=== PATIENT | male | born 1990 | race Caucasian/White ===

== ENCOUNTER 2018-07-14 17:12 | Inpatient (IN) | payer BC ==
--- NOTE | 2018-07-14 18:22 | EDM.PDOC ---
ED HPI GENERAL MEDICAL PROBLEM - General Chief Complaint: Cardiovascular Problem Stated Complaint: FROM CLINIC Time Seen by Provider: 07/14/18 18:18 Source of Information: Reports: Patient History Limitations: Reports: No Limitations - History of Present Illness INITIAL COMMENTS - FREE TEXT/NARRATIVE: his patient comes emergency department today from the clinic with concerns of weakness nausea and vomiting. The patient initially was to be a direct admit but the hospitalist would like the patient screen in the emergency department as there was some concerns for hypotension with his rather comorbid patient. The patient he does have a significant history of cardiomyopathy with a reduced ejection fraction. He has been recently placed on blood pressure medication as well as diureticte aggressively. Over the past couple of days he really has no energy and he feels very fatigued and wiped out.He has no shortness of breath difficulty breathing or chest pain. No cough or congestion. He is currently on Xarelto. He has no abdominal pain. But he has quite a bit of nausea and retching. No diarrhea. He does have a wound VAC to his groin from previous surgery from a strangulated hernia.e has been taking his medications as prescribed Generalized Pain Score (Numeric/FACES): 7 - Related Data Allergies Allergy/AdvReac Type Severity Reaction Status Date / Time topiramate [From Topamax] Allergy Unknown INTOLERANCE Verified 07/14/18 19:57 heparin Allergy Cannot Verified 07/14/18 19:57 Remember Home Meds: Home Meds Venlafaxine HCl [Venlafaxine ER] 150 mg PO DAILY 04/17/18 [History] Albuterol Sulfate 2.5 mg IH Q4H PRN 04/19/18 [History] Albuterol [Ventolin HFA] 2 puff INH Q4H PRN 04/19/18 [History] Fluticasone/Salmeterol [Advair 100-50] 1 inhalation INH BID 06/05/18 [History] LORazepam [Ativan] 1 mg PO Q8HR PRN 06/05/18 [History] busPIRone HCl [Buspirone HCl] 10 mg PO BID 06/05/18 [History] Amoxicillin/Potassium Clav [Augmentin 875-125 Tablet] 1 tab PO TID 07/14/18 [ History] Bumetanide [Bumex] 3 mg PO BID 07/14/18 [History] Carvedilol [Coreg] 3.125 mg PO BID 07/14/18 [History] Lisinopril [Zestril] 5 mg PO DAILY 07/14/18 [History] Magnesium Oxide 400 mg PO DAILY 07/14/18 [History] Oxybutynin Chloride 5 mg PO TID 07/14/18 [History] Potassium Chloride 40 meq PO QID 07/14/18 [History] Rivaroxaban [Xarelto] 15 mg PO BID 07/14/18 [History] Spironolactone [Aldactone] 50 mg PO BID 07/14/18 [History] metFORMIN [Glucophage XR] 1,000 mg PO BIDMEALS 07/14/18 [History] Past Medical History HEENT History: Reports: Allergic Rhinitis, Impaired Vision Cardiovascular History: Reports: High Cholesterol Respiratory History: Reports: Asthma, PE Other Respiratory History: hx of status asthmaticus Genitourinary History: Reports: None Musculoskeletal History: Reports: None Neurological History: Reports: Neuropathy, Diabetic Psychiatric History: Reports: Anxiety Endocrine/Metabolic History: Reports: Diabetes, Type II, Obesity/BMI 30+ 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 Immunologic History: Reports: None Oncologic (Cancer) History: Reports: None Dermatologic History: Reports: None - Infectious Disease History Infectious Disease History: Reports: None - Past Surgical History Head Surgeries/Procedures: Reports: None GI Surgical History: Reports: Bariatric Procedure, Hernia, Abdominal, Other ( See Below) Other GI Surgeries/Procedures: lap band Social & Family History - Family History Family Medical History: Noncontributory - Tobacco Use Smoking Status *Q: Never Smoker - Caffeine Use Caffeine Use: Reports: None - Recreational Drug Use Recreational Drug Use: No - Living Situation & Occupation Living situation: Reports: with Family Occupation: Employed ED ROS GENERAL - Review of Systems Review Of Systems: ROS reveals no pertinent complaints other than HPI. ED EXAM, GENERAL - Physical Exam Exam: See Below Free Text/Narrative:: his is a very morbid obese patient who appears in no acute distress.He is retching when I enter the room. Exam Limited By: No Limitations General Appearance: Alert, No Apparent Distress Head: Atraumatic, Normocephalic Neck: Normal Inspection, Supple Respiratory/Chest: No Respiratory Distress, Lungs Clear, Normal Breath Sounds, No Accessory Muscle Use Cardiovascular: Normal Peripheral Pulses, Regular Rate, Rhythm, No Murmur GI/Abdominal: Normal Bowel Sounds, Soft, Non-Tender Back Exam: Normal Inspection, Full Range of Motion Extremities: Normal Inspection, Pedal Edema (2+ pitting edema bilaterally which the patient and his family report as being much improved.) Neurological: Alert, Oriented, Normal Cognition, No Motor/Sensory Deficits Psychiatric: Normal Affect, Normal Mood Skin Exam: Warm, Dry, Intact, Normal Color, No Rash EKG INTERPRETATION EKG Date: 07/14/18 Time: 19:21 Rhythm: NSR Rate (Beats/Min): 102 Nora: Normal P-Wave: Present QRS: Normal ST-T: Normal QT: Normal Comparison: No Change Course - Vital Signs Last Recorded V/S: Last Vital Signs Temp 36.4 C 07/14/18 19:47 Pulse 110 H 07/14/18 19:47 Resp 18 07/14/18 19:47 BP 106/76 07/14/18 19:47 Pulse Ox 100 07/14/18 19:47 - Orders/Labs/Meds Orders: Active Orders 24 hr Category Date Time Status EKG 12 Lead [EKG Documentation Completion] [RC] URGENT Care 07/14/18 18:25 Active Peripheral IV Care [RC] . DIRECTED Care 07/14/18 18:24 Active Sodium Chloride 0.9% [Saline Flush] Med 07/14/18 18:24 Active 10 ml FLUSH ASDIRECTED PRN Peripheral IV Insertion Adult [OM.PC] Stat Oth 07/14/18 18:24 Ordered Medication Orders Sodium Chloride (Saline Flush) 10 ml FLUSH ASDIRECTED PRN PRN Reason: Keep Vein Open Last Admin: 07/14/18 18:47 Dose: 10 ml Labs: Laboratory Tests 07/14/18 Range/Units 18:44 Sodium 126 L (135-145) mmol/L Potassium 5.4 H D (3.6-5.0) mmol/L Chloride 90 L (101-111) mmol/L Carbon Dioxide 23.0 (21.0-31.0) mmol/L Anion Gap 18.4 BUN 17 (7-18) mg/dL Creatinine 0.8 (0.6-1.3) mg/dL Est Cr Clr Drug Dosing 126.27 mL/min Estimated GFR (MDRD) > 60 BUN/Creatinine Ratio 21.25 Glucose 93 (74-105) mg/dL Calcium 9.2 (8.4-10.2) mg/dl Total Bilirubin 1.6 H (0.2-1.0) mg/dL AST 31 (10-42) IU/L ALT 21 (10-60) IU/L Alkaline Phosphatase 63 (42-121) IU/L Troponin I < 0.02 (0.00-0.02) ng/ml Total Protein 6.8 (6.7-8.2) g/dl Albumin 3.8 (3.2-5.5) g/dl Globulin 3.0 Albumin/Globulin Ratio 1.27 Meds: Medications Generic Name Dose Route Start Last Admin Trade Name Freq PRN Reason Stop Dose Admin Sodium Chloride 10 ml 07/14/18 18:24 07/14/18 18:47 Saline Flush FLUSH 10 ml ASDIRECTED PRN Administration Keep Vein Open Discontinued Medications Generic Name Dose Route Start Last Admin Trade Name Freq PRN Reason Stop Dose Admin Piperacillin Sod/Tazobactam 100 mls @ 200 mls/hr 07/14/18 18:29 07/14/18 19: 05 Sod 3.375 gm/ Sodium Chloride IV 07/14/18 18:58 Not Given ONETIME ONE Ondansetron HCl 4 mg 07/14/18 18:31 07/14/18 18:58 Zofran IV 07/14/18 18:32 4 mg ONETIME ONE Administration - Re-Assessments/Exams Free Text/Narrative Re-Assessment/Exam: 07/14/18 20:27 his blood pressure stable in the emergency department.His laboratory evaluation is repeated his troponin is normal. Did review his laboratory evaluation from the clinic that shows hyponatremia as well as hyperkalemia. I spoke with the hospitalist and he feels comfortable with admission. Departure - Departure Time of Disposition: 19:00 Disposition: Admitted As Inpatient 68 Clinical Impression: Weakness, Hyponatremia, Morbid obesity, Hyperkalemia - My Orders Last 24 Hours: My Active Orders 07/14/18 18:24 Peripheral IV Care [RC] . DIRECTED Sodium Chloride 0.9% [Saline Flush] 10 ml FLUSH ASDIRECTED PRN Peripheral IV Insertion Adult [OM.PC] Stat 07/14/18 18:25 EKG 12 Lead [EKG Documentation Completion] [RC] URGENT - Assessment/Plan Last 24 Hours: My Active Orders 07/14/18 18:24 Peripheral IV Care [RC] . DIRECTED Sodium Chloride 0.9% [Saline Flush] 10 ml FLUSH ASDIRECTED PRN Peripheral IV Insertion Adult [OM.PC] Stat 07/14/18 18:25 EKG 12 Lead [EKG Documentation Completion] [RC] URGENT Assessment:: Weakness hyponatremia hyperkalemia nausea vomiting morbid obesity.
[2018-07-14] MEDS ORDERED: Sodium Chloride 0.9% 10 ML Syringe FLUSH PRN (18:24)
[2018-07-14] MEDS ORDERED: Piperacillin/Tazobactam 3.375 GM in Sodium Chloride 0.9% 100 ML IV ONE (18:29)
[2018-07-14] MEDS ORDERED: Ondansetron 4 MG/2 ML SDV IV ONE (18:31)
[2018-07-14 19:14] LABS: ANION GAP 18.4; CHLORIDE,CL 90 mmol/L (101-111); SODIUM,NA 126 mmol/L (135-145)
--- NOTE | 2018-07-14 20:09 | PCM.HP ---
H&P History of Present Illness - General Date of Service: 07/14/18 Admit Problem/Dx: Admission Diagnosis/Problem Admission Diagnosis/Problem Hyponatremia Source of Information: Patient, Family - History of Present Illness Initial Comments - Free Text/Narative: Mr. Noe Rose is a 28-y.o male with extensive medical history significant for recent diagnosis of severe systolic 25%,type II diabetes, abdominal wall cellulitis and panniculitis, incarcerated hernia s/p repair in May 2018 complicated by cellulitis and wound dehiscence s/p wound vac placement, recent PEs, HIT, and splenic infarct who presented to the clinic today with complaints of worsening fatigue, decreased appetite, and nausea without emesis for the past 3-4 days. Patient reports that he was doing very well when he was discharged from the hospital on 07/09/18 however, he has not been feeling well for the past 3-4 days. He reports that over the last day, he has had decreased po intake. He reports that he has had decreased urine output and his urine looks darker. Mother reports that patient has been more anxious than baseline and his ativan does not seem to be helping. She reports that she has had to go to patient's room to calm him down before patient can sleep at night. Patient reports that he has had constipation but he took miralax and was able to have a bowel movement yesterday in the morning. He reports 6/10 frontal headache that is new for him. Denies radiation. He denies chest pain, shortness of breath, fevers, chills, cough, sputum production, abdominal pain, diarrhea, melena, hematochezia, dysuria, hematuria , worsening erythema of his abdominal cellulitis/panniculitis, worsening edema, or any other acute concerns. He reports that the only new medication he has started is lisinopril. Patient was seen in the clinic today where he was found to have Sodium of 129 and SBP of 90. He was sent to the ED where repeat labs showed Na of 126. BP was in the 110s. He is admitted for work-up and management of his hyponatremia and weakness/fatigue. Generalized Pain Score (Numeric/FACES): 7 - Related Data Allergies/Adverse Reactions: Allergies Allergy/AdvReac Type Severity Reaction Status Date / Time topiramate [From Topamax] Allergy Unknown INTOLERANCE Verified 07/14/18 19:57 heparin Allergy Cannot Verified 07/14/18 19:57 Remember Home Medications: Home Meds Venlafaxine HCl [Venlafaxine ER] 150 mg PO DAILY 04/17/18 [History] Albuterol Sulfate 2.5 mg IH Q4H PRN 04/19/18 [History] Albuterol [Ventolin HFA] 2 puff INH Q4H PRN 04/19/18 [History] Fluticasone/Salmeterol [Advair 100-50] 1 inhalation INH BID 06/05/18 [History] LORazepam [Ativan] 1 mg PO Q8HR PRN 06/05/18 [History] busPIRone HCl [Buspirone HCl] 10 mg PO BID 06/05/18 [History] Amoxicillin/Potassium Clav [Augmentin 875-125 Tablet] 1 tab PO TID 07/14/18 [ History] Bumetanide [Bumex] 3 mg PO BID 07/14/18 [History] Carvedilol [Coreg] 3.125 mg PO BID 07/14/18 [History] Lisinopril [Zestril] 5 mg PO DAILY 07/14/18 [History] Magnesium Oxide 400 mg PO DAILY 07/14/18 [History] Oxybutynin Chloride 5 mg PO TID 07/14/18 [History] Potassium Chloride 40 meq PO QID 07/14/18 [History] Rivaroxaban [Xarelto] 15 mg PO BID 07/14/18 [History] Spironolactone [Aldactone] 50 mg PO BID 07/14/18 [History] metFORMIN [Glucophage XR] 1,000 mg PO BIDMEALS 07/14/18 [History] Past Medical History HEENT History: Reports: Allergic Rhinitis, Impaired Vision Cardiovascular History: Reports: High Cholesterol Respiratory History: Reports: Asthma, PE Other Respiratory History: hx of status asthmaticus Genitourinary History: Reports: None Musculoskeletal History: Reports: None Neurological History: Reports: Neuropathy, Diabetic Psychiatric History: Reports: Anxiety Endocrine/Metabolic History: Reports: Diabetes, Type II, Obesity/BMI 30+ 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, Heparin Induced Thrombocytopenia Immunologic History: Reports: None Oncologic (Cancer) History: Reports: None Dermatologic History: Reports: None, Cellulitis - Infectious Disease History Infectious Disease History: Reports: None - Past Surgical History Head Surgeries/Procedures: Reports: None GI Surgical History: Reports: Bariatric Procedure, Hernia, Abdominal, Other ( See Below) Other GI Surgeries/Procedures: lap band Social & Family History - Family History Family Medical History: Noncontributory - Tobacco Use Smoking Status *Q: Never Smoker - Caffeine Use Caffeine Use: Reports: None - Recreational Drug Use Recreational Drug Use: No - Living Situation & Occupation Living situation: Reports: with Family Occupation: Employed H&P Review of Systems - Review of Systems: Review Of Systems: ROS reveals no pertinent complaints other than HPI. Exam - Exam Exam: See Below - Vital Signs Vital Signs: Last Vital Signs Temp 97.9 F 07/14/18 17:52 Pulse 104 H 07/14/18 17:52 Resp 18 07/14/18 17:52 BP 115/67 07/14/18 17:52 Pulse Ox 100 07/14/18 17:52 Weight: 251 lb - Exam Physical Exam Comments:: General: Alert and oriented to place, time and person, ill-appearing Head: atraumatic and normocephalic. Eyes: PERRLA, EOMI, anicteric, Ear, Nose and Throat: No gross abnormality found Neck: Supple Respiratory/Chest: CTAB, no wheezes, crackles, rales, or rhonci; Shallow breaths , which could be due to body habitus. No increased work of breathing CVS: Tachycardic, RR, no murmur, rub, or gallop, peripheral pulses palpable. Gastrointestinal/Abd: Soft, laparotomy incision with wound vac in place. mild lower abdominal erythema, which patient reports continues to improve compared to when treatment was started. Skin: No acute rashes noted. Neuro: Grossly non-focal. No cranial nerve abnormality. Moves all extremities. Psych: Alert and oriented to place time and person. Flat affect, fair insight, appears depressed. Musculoskeletal: No abnormality noted. Ext: 2+ pitting edema of bilateral lower extremities with venous stasis hyperpigmentation; no ulcers, no tenderness, no size differences, - Patient Data Lab Results Last 24 hrs: Laboratory Results - last 24 hr 07/14/18 Range/Units 18:44 Sodium 126 L (135-145) mmol/L Potassium 5.4 H D (3.6-5.0) mmol/L Chloride 90 L (101-111) mmol/L Carbon Dioxide 23.0 (21.0-31.0) mmol/L Anion Gap 18.4 BUN 17 (7-18) mg/dL Creatinine 0.8 (0.6-1.3) mg/dL Est Cr Clr Drug Dosing 126.27 mL/min Estimated GFR (MDRD) > 60 BUN/Creatinine Ratio 21.25 Glucose 93 (74-105) mg/dL Calcium 9.2 (8.4-10.2) mg/dl Total Bilirubin 1.6 H (0.2-1.0) mg/dL AST 31 (10-42) IU/L ALT 21 (10-60) IU/L Alkaline Phosphatase 63 (42-121) IU/L Troponin I < 0.02 (0.00-0.02) ng/ml Total Protein 6.8 (6.7-8.2) g/dl Albumin 3.8 (3.2-5.5) g/dl Globulin 3.0 Albumin/Globulin Ratio 1.27 Result Diagrams: 07/14/18 18:44 - Problem List (1) Hyperkalemia SNOMED Code(s): 65748251 ICD Code: E87.5 - HYPERKALEMIA Status: Acute Current Visit: Yes (2) Hyponatremia SNOMED Code(s): 82998022 ICD Code: E87.1 - HYPO-OSMOLALITY AND HYPONATREMIA Status: Acute Current Visit: Yes (3) Morbid obesity SNOMED Code(s): 113614717 ICD Code: E66.01 - MORBID (SEVERE) OBESITY DUE TO EXCESS CALORIES Status: Acute Current Visit: Yes (4) Weakness SNOMED Code(s): 09164925 ICD Code: R53.1 - WEAKNESS Status: Acute Current Visit: Yes (5) Anxiety about health SNOMED Code(s): 182742397 ICD Code: F41.8 - OTHER SPECIFIED ANXIETY DISORDERS Status: Acute Current Visit: No (6) Hyponatremia syndrome SNOMED Code(s): 2256834 ICD Code: E87.1 - HYPO-OSMOLALITY AND HYPONATREMIA Status: Acute Current Visit: No Problem List Initiated/Reviewed/Updated: Yes Orders Last 24hrs: Active Orders 24 hr Category Date Time Status Patient Status [ADT] Routine ADT 07/14/18 20:06 Ordered Cardiac Monitoring [RC] CONTINUOUS Care 07/14/18 20:07 Ordered EKG 12 Lead [EKG Documentation Completion] [RC] URGENT Care 07/14/18 18:25 Active Oxygen Therapy [RC] PRN Care 07/14/18 20:06 Ordered Peripheral IV Care [RC] . DIRECTED Care 07/14/18 18:24 Active Up With Assistance [RC] ASDIRECTED Care 07/14/18 20:05 Ordered VTE/DVT Education [RC] PER UNIT ROUTINE Care 07/14/18 20:06 Ordered Vital Signs [RC] Q4H Care 07/14/18 20:06 Ordered Regular Diet [DIET] Diet 07/15/18 Breakfast Ordered BASIC METABOLIC PANEL,BMP [CHEM] Timed Lab 07/14/18 20:05 Ordered Sodium Chloride 0.9% [Saline Flush] Med 07/14/18 18:24 Active 10 ml FLUSH ASDIRECTED PRN Peripheral IV Insertion Adult [OM.PC] Stat Oth 07/14/18 18:24 Ordered Resuscitation Status Routine Resus Stat 07/14/18 20:05 Ordered Medication Orders Sodium Chloride (Saline Flush) 10 ml FLUSH ASDIRECTED PRN PRN Reason: Keep Vein Open Last Admin: 07/14/18 18:47 Dose: 10 ml Assessment/Plan Comment:: #Hyponatremia: Likely 2/2 diuretics with poor po intake. - Obtain Urine Osm, serum osm, and Urine Na. - Start Na tabs. - q4 BMP. - regular diet for now. Patient informed that once hyponatremia is resolved, he will need to go back to cardiac/low Na diet. #Hyperkalemia: likely from initiating lisinopril recently. Patient on spironolactone and KCl. - Hold oral potassium for now. - Monitor BMP. - If not improving, will decrease doses of aldactone and lisinopril. - Discuss with nephrology in the AM #Fatigue/Weakness: Likely multifactorial with deconditioning, anxiety/depression , and beta-guera, although the later is less likely. - PT/OT int he morning. #Nausea: - Resume Zofran. - If Zofran not helping, start Phenergan #Anxiety about health: continue current medications. - Outpatient follow up with psychiatry. #HFrEF: continue home medications for now. - Has follow up with cardiology on 07/16/2018 #Obesity: dietary modification encouraged. Recommended DASH diet or Mediterranean diet DVT Ppx: Xarelto GI Ppx: Regular diet Full Code.
[2018-07-14] MEDS ORDERED: Albuterol 6.7 GM Inhaler INH PRN (20:40)
[2018-07-14] MEDS ORDERED: Albuterol 0.083% 2.5 MG/3 ML Neb Soln INH PRN (20:40)
[2018-07-14] MEDS ORDERED: LORazepam 1 MG Tab PO PRN (20:40)
[2018-07-14] MEDS ORDERED: oxyCODONE 5 MG Tab PO ONE (22:14)
[2018-07-14] MEDS: Spironolactone 25 MG Tab PO SCH (22:45)
[2018-07-14] MEDS: Amoxicillin/Clavulanate K 875-125 MG Tab PO SCH (22:45)
[2018-07-14] MEDS: Bumetanide 1 MG Tab PO SCH (22:46)
[2018-07-14] MEDS: busPIRone 15 MG Tab PO SCH (22:47)
[2018-07-14] MEDS: Carvedilol 3.125 MG Tab PO SCH (22:48)
[2018-07-14] MEDS: Formoterol/Mometasone 100-5 MCG 8.8 GM Inhaler IH SCH (22:51)
[2018-07-14] MEDS: Oxybutynin 5 MG Tab PO SCH (22:52)
[2018-07-14] MEDS: metFORMIN 500 MG Tab PO SCH (22:53)
[2018-07-14] MEDS: Rivaroxaban 10 MG Tab PO SCH (22:53)
[2018-07-14] MEDS ORDERED: Sodium Chloride 1 GM Tab PO ONE (23:11)
[2018-07-15 06:50] LABS: ANION GAP 17.7; CHLORIDE,CL 92 mmol/L (101-111); SODIUM,NA 128 mmol/L (135-145)
[2018-07-15] MEDS ORDERED: Non-Formulary Medication 1 Each (Metformin [Glucophage Xr] 1,000 MG) PO SCH (08:00)
[2018-07-15] MEDS: Bumetanide 1 MG Tab PO SCH (08:52)
[2018-07-15] MEDS: metFORMIN 500 MG Tab PO SCH ×2 (08:53→17:34)
[2018-07-15] MEDS: Sodium Chloride 1 GM Tab PO SCH ×2 (08:53→13:39)
[2018-07-15] MEDS: Spironolactone 25 MG Tab PO SCH (08:53)
[2018-07-15] MEDS: Oxybutynin 5 MG Tab PO SCH ×2 (08:53→13:39)
[2018-07-15] MEDS: Amoxicillin/Clavulanate K 875-125 MG Tab PO SCH ×2 (08:53→13:39)
[2018-07-15] MEDS: Carvedilol 3.125 MG Tab PO SCH (08:54)
[2018-07-15] MEDS: Rivaroxaban 10 MG Tab PO SCH (08:54)
[2018-07-15] MEDS: busPIRone 15 MG Tab PO SCH (08:55)
[2018-07-15] MEDS: Formoterol/Mometasone 100-5 MCG 8.8 GM Inhaler IH SCH (08:56)
[2018-07-15] MEDS ORDERED: Venlafaxine 150 MG CAP.ER PO SCH (09:00)
[2018-07-15 13:23] LABS: ANION GAP 18.5; CHLORIDE,CL 91 mmol/L (101-111); SODIUM,NA 127 mmol/L (135-145)
--- NOTE | 2018-07-15 16:40 | PCM.DCSUM1 ---
Discharge Summary - Hospital Course Free Text/Narrative:: Mr. Noe Rose is a 28-y.o male with extensive medical history significant for recent diagnosis of severe systolic 25%,type II diabetes, abdominal wall cellulitis and panniculitis, incarcerated hernia s/p repair in May 2018 complicated by cellulitis and wound dehiscence s/p wound vac placement, recent PEs, HIT, and splenic infarct who presented to the clinic today with complaints of worsening fatigue, decreased appetite, and nausea without emesis for the past 3-4 days. He was found to have Na of 126 and K of 5.4. Urine Na was <10. He was started on Salt tabs and regular diet. His home potassium was held. K came back today is 4.5. Na came up to 128. He was discharged to follow up with Nephrology the following morning. Diagnosis: Stroke: No - Discharge Data Discharge Date: 07/15/18 Discharge Disposition: Home, Self-Care 01 Condition: Stable - Discharge Diagnosis/Problem(s) (1) Hyperkalemia SNOMED Code(s): 78868445 ICD Code: E87.5 - HYPERKALEMIA Status: Acute Current Visit: Yes (2) Hyponatremia SNOMED Code(s): 91844746 ICD Code: E87.1 - HYPO-OSMOLALITY AND HYPONATREMIA Status: Acute Current Visit: Yes (3) Morbid obesity SNOMED Code(s): 539719592 ICD Code: E66.01 - MORBID (SEVERE) OBESITY DUE TO EXCESS CALORIES Status: Acute Current Visit: Yes (4) Weakness SNOMED Code(s): 71015793 ICD Code: R53.1 - WEAKNESS Status: Acute Current Visit: Yes (5) Anxiety about health SNOMED Code(s): 528151805 ICD Code: F41.8 - OTHER SPECIFIED ANXIETY DISORDERS Status: Acute Current Visit: Yes (6) Hyponatremia syndrome SNOMED Code(s): 3480333 ICD Code: E87.1 - HYPO-OSMOLALITY AND HYPONATREMIA Status: Acute Current Visit: Yes - Patient Summary/Data Consults: Consultations 07/15/18 08:22 OT Evaluation and Treatment [CONS] Routine PT Evaluation and Treatment [CONS] Routine - Discharge Plan Home Medications: Home Meds Venlafaxine HCl [Venlafaxine ER] 150 mg PO DAILY 04/17/18 [History] Albuterol Sulfate 2.5 mg IH Q4H PRN 04/19/18 [History] Albuterol [Ventolin HFA] 2 puff INH Q4H PRN 04/19/18 [History] Fluticasone/Salmeterol [Advair 100-50] 1 inhalation INH BID 06/05/18 [History] LORazepam [Ativan] 1 mg PO Q8HR PRN 06/05/18 [History] busPIRone HCl [Buspirone HCl] 10 mg PO BID 06/05/18 [History] Amoxicillin/Potassium Clav [Augmentin 875-125 Tablet] 1 tab PO TID 07/14/18 [ History] Bumetanide [Bumex] 3 mg PO BID 07/14/18 [History] Carvedilol [Coreg] 3.125 mg PO BID 07/14/18 [History] Lisinopril [Zestril] 5 mg PO DAILY 07/14/18 [History] Magnesium Oxide 400 mg PO DAILY 07/14/18 [History] Oxybutynin Chloride 5 mg PO TID 07/14/18 [History] Rivaroxaban [Xarelto] 15 mg PO BID 07/14/18 [History] Spironolactone [Aldactone] 50 mg PO BID 07/14/18 [History] metFORMIN [Glucophage XR] 1,000 mg PO BIDMEALS 07/14/18 [History] Oxygen Therapy Mode: Room Air Patient Handouts: Hyponatremia, [id number] - Discharge Summary/Plan Comment DC Time >30 min.: Yes - General Info Date of Service: 07/15/18 Admission Dx/Problem (Free Text: Admission Diagnosis/Problem Admission Diagnosis/Problem Hyponatremia Subjective Update: NO acute events overnight. Reports that he is doing better today. Was able to ambulate without assistance. Denies any acute symptoms. Anticipating follow up appointments tomorrow. Functional Status: Reports: Other (Denies pain) - Review of Systems General: Reports: No Symptoms HEENT: Reports: No Symptoms Pulmonary: Reports: No Symptoms Cardiovascular: Reports: No Symptoms Gastrointestinal: Reports: No Symptoms Genitourinary: Reports: No Symptoms Musculoskeletal: Reports: No Symptoms Skin: Reports: No Symptoms Neurological: Reports: No Symptoms Psychiatric: Reports: No Symptoms - Patient Data Vitals - Most Recent: Last Vital Signs Temp 98.1 F 07/15/18 15:43 Pulse 106 H 07/15/18 15:43 Resp 20 07/15/18 15:43 BP 107/68 07/15/18 15:43 Pulse Ox 100 07/15/18 15:43 Weight - Most Recent: 451 lb I&O - Last 24 hours: Intake & Output 07/15/18 07/15/18 07/15/18 06:59 14:59 22:59 Intake Total 640 Balance 640 Lab Results - Last 24 hrs: Laboratory Results - last 24 hr 07/14/18 07/14/18 07/14/18 Range/Units 18:44 20:34 20:35 Sodium 126 L (135-145) mmol/L Potassium 5.4 H D (3.6-5.0) mmol/L Chloride 90 L (101-111) mmol/L Carbon Dioxide 23.0 (21.0-31.0) mmol/L Anion Gap 18.4 BUN 17 (7-18) mg/dL Creatinine 0.8 (0.6-1.3) mg/dL Est Cr Clr Drug Dosing 126.27 mL/min Estimated GFR (MDRD) > 60 BUN/Creatinine Ratio 21.25 Glucose 93 (74-105) mg/dL POC Glucose 93 (70-105) mg/dl Calcium 9.2 (8.4-10.2) mg/dl Total Bilirubin 1.6 H (0.2-1.0) mg/dL AST 31 (10-42) IU/L ALT 21 (10-60) IU/L Alkaline Phosphatase 63 (42-121) IU/L Troponin I < 0.02 (0.00-0.02) ng/ml Total Protein 6.8 (6.7-8.2) g/dl Albumin 3.8 (3.2-5.5) g/dl Globulin 3.0 Albumin/Globulin Ratio 1.27 Ur Random Sodium < 10 L (40-220) mmol/L 07/15/18 07/15/18 07/15/18 Range/Units 06:10 07:59 11:19 Sodium 128 L (135-145) mmol/L Potassium 4.7 (3.6-5.0) mmol/L Chloride 92 L (101-111) mmol/L Carbon Dioxide 23.0 (21.0-31.0) mmol/L Anion Gap 17.7 BUN 18 (7-18) mg/dL Creatinine 0.8 (0.6-1.3) mg/dL Est Cr Clr Drug Dosing 126.27 mL/min Estimated GFR (MDRD) > 60 BUN/Creatinine Ratio Glucose 86 (74-105) mg/dL POC Glucose 79 117 H (70-105) mg/dl Calcium 9.0 (8.4-10.2) mg/dl Total Bilirubin (0.2-1.0) mg/dL AST (10-42) IU/L ALT (10-60) IU/L Alkaline Phosphatase (42-121) IU/L Troponin I (0.00-0.02) ng/ml Total Protein (6.7-8.2) g/dl Albumin (3.2-5.5) g/dl Globulin Albumin/Globulin Ratio Ur Random Sodium (40-220) mmol/L 07/15/18 Range/Units 13:05 Sodium 127 L (135-145) mmol/L Potassium 4.5 (3.6-5.0) mmol/L Chloride 91 L (101-111) mmol/L Carbon Dioxide 22.0 (21.0-31.0) mmol/L Anion Gap 18.5 BUN 20 H (7-18) mg/dL Creatinine 0.9 (0.6-1.3) mg/dL Est Cr Clr Drug Dosing 112.24 mL/min Estimated GFR (MDRD) > 60 BUN/Creatinine Ratio Glucose 111 H (74-105) mg/dL POC Glucose (70-105) mg/dl Calcium 9.1 (8.4-10.2) mg/dl Total Bilirubin (0.2-1.0) mg/dL AST (10-42) IU/L ALT (10-60) IU/L Alkaline Phosphatase (42-121) IU/L Troponin I (0.00-0.02) ng/ml Total Protein (6.7-8.2) g/dl Albumin (3.2-5.5) g/dl Globulin Albumin/Globulin Ratio Ur Random Sodium (40-220) mmol/L Med Orders - Current: Current Medications Albuterol (Proventil Hfa) 2 gm INH Q4H PRN PRN Reason: Shortness of Breath Albuterol (Proventil Neb Soln) 2.5 mg INH Q4H PRN PRN Reason: Shortness of Breath Amoxicillin/Clavulanate Potassium (Augmentin 875 Mg/125 Mg) 1 tab PO TID COUNT INCLUDES THE [facility] Last Admin: 07/15/18 13:39 Dose: 1 tab Bumetanide (Bumex) 3 mg PO BID COUNT INCLUDES THE [facility] Last Admin: 07/15/18 08:52 Dose: 3 mg Buspirone HCl (Buspar) 10 mg PO BID COUNT INCLUDES THE [facility] Last Admin: 07/15/18 08:55 Dose: 10 mg Carvedilol (Coreg) 3.125 mg PO BID COUNT INCLUDES THE [facility] Last Admin: 07/15/18 08:54 Dose: 3.125 mg Lorazepam (Ativan) 1 mg PO Q8HR PRN PRN Reason: Anxiety Magnesium Oxide (Magnesium Oxide) 500 mg PO DAILY COUNT INCLUDES THE [facility] Last Admin: 07/15/18 08:53 Dose: 500 mg Metformin HCl (Glucophage) 1,000 mg PO BIDMEALS COUNT INCLUDES THE [facility] Last Admin: 07/15/18 08:53 Dose: 1,000 mg Mometasone Furoate/Formoterol Fumar (Dulera 100-5 Mcg) 2 puff IH BIDRT COUNT INCLUDES THE [facility] Last Admin: 07/15/18 08:56 Dose: 2 puff Oxybutynin Chloride (Oxybutynin) 5 mg PO TID COUNT INCLUDES THE [facility] Last Admin: 07/15/18 13:39 Dose: 5 mg Rivaroxaban (Xarelto) 15 mg PO BID COUNT INCLUDES THE [facility] Last Admin: 07/15/18 08:54 Dose: 15 mg Sodium Chloride (Saline Flush) 10 ml FLUSH ASDIRECTED PRN PRN Reason: Keep Vein Open Last Admin: 07/14/18 18:47 Dose: 10 ml Sodium Chloride (Sodium Chloride) 1 gm PO TID COUNT INCLUDES THE [facility] Last Admin: 07/15/18 13:39 Dose: 1 gm Spironolactone (Aldactone) 50 mg PO BID COUNT INCLUDES THE [facility] Last Admin: 07/15/18 08:53 Dose: 50 mg Venlafaxine HCl (Venlafaxine Hcl Er) 150 mg PO DAILY COUNT INCLUDES THE [facility] Last Admin: 07/15/18 08:55 Dose: 150 mg Discontinued Medications Piperacillin Sod/Tazobactam (Sod 3.375 gm/ Sodium Chloride) 100 mls @ 200 mls/ hr IV ONETIME ONE Stop: 07/14/18 18:58 Last Admin: 07/14/18 19:05 Dose: Not Given Non-Formulary Medication (Metformin [Glucophage Xr]) 1,000 mg PO BIDMEALS COUNT INCLUDES THE [facility] Ondansetron HCl (Zofran) 4 mg IV ONETIME ONE Stop: 07/14/18 18:32 Last Admin: 07/14/18 18:58 Dose: 4 mg Oxycodone HCl (Oxycodone) 5 mg PO ONETIME ONE Stop: 07/14/18 22:15 Last Admin: 07/14/18 22:43 Dose: 5 mg Sodium Chloride (Sodium Chloride) 1 gm PO TID WENDY Sodium Chloride (Sodium Chloride) 1 gm PO TID WENDY Sodium Chloride (Sodium Chloride) 1 gm PO ONETIME ONE Stop: 07/14/18 23:12 Last Admin: 07/14/18 23:31 Dose: 1 gm - Exam General: Reports: Alert, Oriented HEENT: Reports: Pupils Equal, Pupils Reactive, Mucous Membr. Moist/[place] Neck: Reports: Supple Lungs: Reports: Clear to Auscultation, Normal Respiratory Effort Cardiovascular: Reports: Regular Rate, Regular Rhythm (Distant heart sound) GI/Abdominal Exam: Normal Bowel Sounds, Soft, Non-Tender, Other (abdominal adiposity. surgical incision site and wound vac in place without any changes. ) Extremities: Normal Inspection, Non-Tender, Pedal Edema Skin: Reports: Warm, Dry, Intact Wound/Incisions: Reports: Healing Well, Dressing Dry and Intact Neurological: Reports: No New Focal Deficit Psy/Mental Status: Reports: Alert, Normal Affect, Normal Mood
[2018-07-15] MEDS ORDERED: Sodium Chloride 1 GM Tab PO ONE (16:53)
[2018-07-15] MEDS ORDERED: Sodium Chloride 1 GM Tab PO SCH ×2 (22:00→23:15)
== END 2018-07-15 17:45 | disposition home or self-care (01) | DRG 425 ==
LOC: DL.ED 17:12 → UNDOADMIN 19:36 → DL.MS 19:36
PROVIDERS: ADMIT Internal Medicine; ATTEND Internal Medicine
DX: E87.5 Hyperkalemia (principal); E87.1 Hypo-osmolality and hyponatremia; E66.01 Morbid (severe) obesity due to excess calories; Z68.45 Body mass index [BMI] 70 or greater, adult; E11.40 Type 2 diabetes mellitus with diabetic neuropathy, unspecified; F41.9 Anxiety disorder, unspecified; F32.9 Major depressive disorder, single episode, unspecified; I11.0 Hypertensive heart disease with heart failure; I50.20 Unspecified systolic (congestive) heart failure; H54.7 Unspecified visual loss; J45.909 Unspecified asthma, uncomplicated; Z88.8 Allergy status to other drugs, medicaments and biological substances; D75.82 Heparin induced thrombocytopenia (HIT); Z79.01 Long term (current) use of anticoagulants; Z79.899 Other long term (current) drug therapy; Z86.711 Personal history of pulmonary embolism; Z79.84 Long term (current) use of oral hypoglycemic drugs; Z79.51 Long term (current) use of inhaled steroids; Z86.19 Personal history of other infectious and parasitic diseases
CPT/HCPCS: 36415; 80048; 80053; 82962; 83935; 84300; 84484; 93005; 96374; 97162-GP; 97165-GO; 99285; A9270-GY; J2405

== ENCOUNTER 2018-10-22 15:27 | Emergency (ER) | payer BC ==
--- NOTE | 2018-10-22 16:24 | CR ---
Clinical history: 28-year-old male complaining of chest pain. Interpretation: Generally poor inspiratory effort morbidly obese patient. No new signs of heart failure (alveolar edema or dependent pleural fluid accumulation) since exam 30 June 2018. No new lung mass, hilar lymphadenopathy or focal lobar pneumonia. No atelectasis/collapse. No pneumothorax. CONCLUSION: No acute new cardiopulmonary abnormality.
[2018-10-22 16:51] LABS: ANION GAP 17.9; CHLORIDE,CL 99 mmol/L (101-111); SODIUM,NA 139 mmol/L (135-145)
--- NOTE | 2018-10-22 17:37 | EDM.PDOC ---
<Moody Figueroa - Last Filed: 10/22/18 17:32> ED HPI GENERAL MEDICAL PROBLEM - General Chief Complaint: Cardiovascular Problem Stated Complaint: grand greene wanted him to come here for heart Time Seen by Provider: 10/22/18 17:32 Source of Information: Reports: Patient History Limitations: Reports: No Limitations - History of Present Illness INITIAL COMMENTS - FREE TEXT/NARRATIVE: 4 days ago the patient has left sided chest pain that awoke him from his sleep. The pain went down to the left elbow and lasted 5 min. The pain was sharp. Ever since then his left arm has felt heavy. He's been more tired lately, has had SOB and has more swelling in his ankles. He has had headaches on and off since the chest pain. He has a BP machine at home at that time his BP was 200/90 and he had an irregular heartbeat. Location: Reports: Chest Quality: Reports: Pressure Improves with: Reports: None Associated Symptoms: Reports: Headaches, Shortness of Breath Chest Pain Score (Numeric/FACES): 6 - Related Data Allergies Allergy/AdvReac Type Severity Reaction Status Date / Time topiramate [From Topamax] Allergy Unknown INTOLERANCE Verified 10/22/18 16:01 heparin Allergy Cannot Verified 10/22/18 16:01 Remember Home Meds: Home Meds Venlafaxine HCl [Venlafaxine ER] 150 mg PO DAILY 04/17/18 [History] Albuterol Sulfate 2.5 mg IH Q4H PRN 04/19/18 [History] Albuterol [Ventolin HFA] 2 puff INH Q4H PRN 04/19/18 [History] LORazepam [Ativan] 1 mg PO Q8HR PRN 06/05/18 [History] busPIRone HCl [Buspirone HCl] 10 mg PO BID 06/05/18 [History] Bumetanide [Bumex] 3 mg PO BID 07/14/18 [History] Magnesium Oxide 400 mg PO DAILY 07/14/18 [History] Oxybutynin Chloride 5 mg PO TID 07/14/18 [History] Rivaroxaban [Xarelto] 15 mg PO BID 07/14/18 [History] Spironolactone [Aldactone] 25 mg PO BID 07/14/18 [History] metFORMIN [Glucophage XR] 1,000 mg PO BIDMEALS 07/14/18 [History] Carvedilol [Coreg] 3.125 mg PO BID 10/22/18 [History] Lisinopril 5 mg PO DAILY 10/22/18 [History] Sacubitril/Valsartan [Entresto 24 mg-26 mg Tablet] 24 mg PO DAILY 10/22/18 [ History] Past Medical History HEENT History: Reports: Allergic Rhinitis, Impaired Vision Cardiovascular History: Reports: Heart Failure, High Cholesterol Respiratory History: Reports: Asthma, PE Other Respiratory History: hx of status asthmaticus Genitourinary History: Reports: None Musculoskeletal History: Reports: None Neurological History: Reports: Neuropathy, Diabetic Psychiatric History: Reports: Anxiety Endocrine/Metabolic History: Reports: Diabetes, Type II, Obesity/BMI 30+ 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, Heparin Induced Thrombocytopenia Immunologic History: Reports: None Oncologic (Cancer) History: Reports: None Dermatologic History: Reports: None, Cellulitis - Infectious Disease History Infectious Disease History: Reports: None - Past Surgical History Head Surgeries/Procedures: Reports: None GI Surgical History: Reports: Bariatric Procedure, Hernia, Abdominal, Other ( See Below) Other GI Surgeries/Procedures: lap band Social & Family History - Family History Family Medical History: Noncontributory - Tobacco Use Smoking Status *Q: Former Smoker Used Tobacco, but Quit: Yes Month/Year Tobacco Last Used: 05/01/2018 - Caffeine Use Caffeine Use: Reports: None - Recreational Drug Use Recreational Drug Use: No - Living Situation & Occupation Living situation: Reports: with Family Occupation: Employed ED ROS GENERAL - Review of Systems Review Of Systems: See Below Constitutional: Reports: Fatigue, Weight Gain (feels like his stomach is heavier ) Respiratory: Reports: Shortness of Breath Cardiovascular: Reports: Chest Pain, Blood Pressure Problem, Edema Endocrine: Reports: Fatigue ED EXAM, GENERAL - Physical Exam Exam: See Below Exam Limited By: Other (morbidly obese) General Appearance: Alert, WD/WN, No Apparent Distress Eye Exam: Bilateral Eye: EOMI Neck: Normal Inspection, Supple, Non-Tender, Full Range of Motion Respiratory/Chest: No Respiratory Distress, No Accessory Muscle Use, Other ( left chest tenderness with palpation. Auscultation of lungs was difficult with patient size) Cardiovascular: Regular Rate, Rhythm, No Murmur, Other (4+ ankle swelling bilaterally.) GI/Abdominal: No Distention, No Mass. No: Tender Extremities: Pedal Edema Neurological: Alert, Oriented Course - Vital Signs Last Recorded V/S: Last Vital Signs Temp 36.6 C 10/22/18 18:11 Pulse 99 10/22/18 18:11 Resp 14 10/22/18 18:11 BP 102/57 L 10/22/18 18:11 Pulse Ox 99 10/22/18 18:11 - Orders/Labs/Meds Orders: Active Orders 24 hr Category Date Time Status EKG 12 Lead [EKG Documentation Completion] [RC] STAT Care 10/22/18 16:07 Active Labs: Laboratory Tests 10/22/18 10/22/18 Range/Units 15:56 15:56 WBC 8.8 (5.0-10.0) 10^3/uL RBC 4.93 (4.6-6.2) 10^6/uL Hgb 13.8 L (14.0-18.0) g/dL Hct 41.9 (40.0-54.0) % MCV 85.0 D (80-100) fL MCH 28.0 (27.0-34.0) pg MCHC 32.9 L (33.0-35.0) g/dL Plt Count 229 D (150-450) 10^3/uL Neut % (Auto) 54.9 (42.2-75.2) % Lymph % (Auto) 32.0 (20.5-50.1) % [place] % (Auto) 11.5 H (2-8) % Eos % (Auto) 1.1 (1.0-3.0) % Baso % (Auto) 0.5 (0.0-1.0) % Sodium 139 D (135-145) mmol/L Potassium 3.9 (3.6-5.0) mmol/L Chloride 99 L (101-111) mmol/L Carbon Dioxide 26.0 (21.0-31.0) mmol/L Anion Gap 17.9 BUN 21 H (7-18) mg/dL Creatinine 0.7 (0.6-1.3) mg/dL Est Cr Clr Drug Dosing 165.12 mL/min Estimated GFR (MDRD) > 60 BUN/Creatinine Ratio 30.00 Glucose 84 (74-105) mg/dL Calcium 9.3 (8.4-10.2) mg/dl Total Bilirubin 0.7 (0.2-1.0) mg/dL AST 25 (10-42) IU/L ALT 27 (10-60) IU/L Alkaline Phosphatase 78 (42-121) IU/L Troponin I < 0.02 (0.00-0.02) ng/ml B-Natriuretic Peptide 283 H (0-100) pg/ml Total Protein 7.4 (6.7-8.2) g/dl Albumin 4.2 (3.2-5.5) g/dl Globulin 3.2 Albumin/Globulin Ratio 1.31 Departure - Departure Disposition: Home, Self-Care 01 Clinical Impression: Nonspecific chest pain Instructions: Nonspecific Chest Pain, [id number] Forms: ED Department Discharge Care Plan Goals: The patient was advised of the examination, lab, EKG and x-ray results during the visit. 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 The patient should keep taking his medications as prescribed. If the patient has any additional symptoms or concerns, the patient should either visit his primary care facility or return to the emergency department. - My Orders Last 24 Hours: My Active Orders 10/22/18 16:07 EKG 12 Lead [EKG Documentation Completion] [RC] STAT - Assessment/Plan Last 24 Hours: My Active Orders 10/22/18 16:07 EKG 12 Lead [EKG Documentation Completion] [RC] STAT <Haile Elliott - Last Filed: 10/22/18 18:34> ED EXAM, GENERAL - Physical Exam General Appearance: Obese Ears: Normal External Exam, Normal Canal, Hearing Grossly Normal, Normal TMs Nose: Normal Inspection, Normal Mucosa, No Blood Throat/Mouth: Normal Inspection, Normal Lips, Normal Teeth, Normal Gums, Normal Oropharynx, Normal Voice, No Airway Compromise Head: Atraumatic, Normocephalic GI/Abdominal: Other (morbid obesity) (Male) Exam: Other Rectal (Males) Exam: Other Back Exam: Normal Inspection, Full Range of Motion, NT Psychiatric: Normal Affect, Normal Mood Skin Exam: Warm, Dry, Intact, Normal Color, No Rash Lymphatic: No Adenopathy Course - Re-Assessments/Exams Free Text/Narrative Re-Assessment/Exam: 10/22/18 18:26 I have examined the patient. I have discussed findings and treatment plan with the medical student. I agree with the assessment and plan in the following medical student's note. Departure - Departure Time of Disposition: 18:28 Condition: Fair
== END 2018-10-22 18:41 | disposition home or self-care (01) ==
LOC: DL.ED 15:27
DX: R07.89 Other chest pain (principal); E11.40 Type 2 diabetes mellitus with diabetic neuropathy, unspecified; Z88.8 Allergy status to other drugs, medicaments and biological substances; Z79.899 Other long term (current) drug therapy; Z87.891 Personal history of nicotine dependence
CPT/HCPCS: 36415; 71045; 80053; 83880; 84484; 85025; 93005; 99285-25

== ENCOUNTER 2019-02-19 15:42 | Emergency (ER) | payer BC ==
--- NOTE | 2019-02-19 16:20 | CR ---
Clinical history: 28-year-old morbidly obese ([place]) male weighing greater than 450 pounds complaining of chest pain. Interpretation: (Technically compromised by patient size and inspiration) Upright AP portable chest film negative and unchanged since 22 October 2018 exam. Normal cardiac silhouette without alveolar edema or dependent new pleural fluid accumulation. No new lung mass, hilar lymphadenopathy or focal lobar pneumonia. No atelectasis/collapse. No pneumothorax.
[2019-02-19 16:36] LABS: ANION GAP 16.4; CHLORIDE,CL 95 mmol/L (101-111); SODIUM,NA 136 mmol/L (135-145)
--- NOTE | 2019-02-19 18:36 | EDM.PDOC ---
ED HPI GENERAL MEDICAL PROBLEM - General Chief Complaint: Chest Pain Stated Complaint: CHEST PAIN Time Seen by Provider: 02/19/19 17:00 Source of Information: Reports: Patient History Limitations: Reports: No Limitations - History of Present Illness INITIAL COMMENTS - FREE TEXT/NARRATIVE: This 28 yo male patient reports to the ED with left sided chest pain. The patient does not know what happened today, but he started to have chest pain as he was sitting down in a chair. The patient reports increased pain with palpation of the left side of his chest. The patient reports no nausea/ vomiting. The patient denies any history of trauma to the area. Onset: Today Duration: Constant Location: Reports: Chest Quality: Reports: Ache Severity: Moderate Improves with: Reports: None Worsens with: Reports: None Context: Reports: Other Associated Symptoms: Reports: Chest Pain Chest Pain Score (Numeric/FACES): 10 - Related Data Allergies Allergy/AdvReac Type Severity Reaction Status Date / Time topiramate [From Topamax] Allergy Unknown INTOLERANCE Verified 02/19/19 15:59 heparin Allergy Cannot Verified 02/19/19 15:59 Remember Home Meds: Home Meds Venlafaxine HCl [Venlafaxine ER] 150 mg PO DAILY 04/17/18 [History] Albuterol Sulfate 2.5 mg IH Q4H PRN 04/19/18 [History] Albuterol [Ventolin HFA] 2 puff INH Q4H PRN 04/19/18 [History] busPIRone HCl [Buspirone HCl] 10 mg PO BID 06/05/18 [History] Bumetanide [Bumex] 3 mg PO BID 07/14/18 [History] Magnesium Oxide 400 mg PO DAILY 07/14/18 [History] Oxybutynin Chloride 5 mg PO TID 07/14/18 [History] Rivaroxaban [Xarelto] 15 mg PO BID 07/14/18 [History] Spironolactone [Aldactone] 25 mg PO BID 07/14/18 [History] metFORMIN [Glucophage XR] 1,000 mg PO BIDMEALS 07/14/18 [History] Sacubitril/Valsartan [Entresto 24 mg-26 mg Tablet] 24 mg PO DAILY 10/22/18 [ History] Metoprolol Succinate [Toprol Xl] 75 mg PO DAILY 02/19/19 [History] metOLazone [Metolazone] 2.5 mg PO DAILY 02/19/19 [History] Past Medical History HEENT History: Reports: Allergic Rhinitis, Impaired Vision Cardiovascular History: Reports: Heart Failure, High Cholesterol, Hypertension Respiratory History: Reports: Asthma, PE Other Respiratory History: hx of status asthmaticus Genitourinary History: Reports: None Musculoskeletal History: Reports: None Neurological History: Reports: Neuropathy, Diabetic Psychiatric History: Reports: Anxiety Endocrine/Metabolic History: Reports: Diabetes, Type II, Obesity/BMI 30+ 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 Immunologic History: Reports: None Oncologic (Cancer) History: Reports: None Dermatologic History: Reports: Cellulitis - Infectious Disease History Infectious Disease History: Reports: None - Past Surgical History Head Surgeries/Procedures: Reports: None GI Surgical History: Reports: Bariatric Procedure, Hernia, Abdominal, Other ( See Below) Other GI Surgeries/Procedures: lap band Social & Family History - Family History Family Medical History: Noncontributory - Tobacco Use Smoking Status *Q: Never Smoker Second Hand Smoke Exposure: No - Caffeine Use Caffeine Use: Reports: None - Recreational Drug Use Recreational Drug Use: No - Living Situation & Occupation Living situation: Reports: with Family Occupation: Employed ED ROS GENERAL - Review of Systems Review Of Systems: ROS reveals no pertinent complaints other than HPI. ED EXAM, GENERAL - Physical Exam Exam: See Below Exam Limited By: No Limitations General Appearance: Alert, WD/WN, Moderate Distress, Obese Eye Exam: Bilateral Eye: EOMI, Normal Inspection, PERRL Ears: Normal External Exam, Normal Canal, Hearing Grossly Normal, Normal TMs Nose: Normal Inspection, Normal Mucosa, No Blood Throat/Mouth: Normal Inspection, Normal Lips, Normal Teeth, Normal Gums, Normal Oropharynx, Normal Voice, No Airway Compromise Head: Atraumatic, Normocephalic Neck: Normal Inspection, Supple, Non-Tender, Full Range of Motion Respiratory/Chest: No Respiratory Distress, Lungs Clear, Normal Breath Sounds, No Accessory Muscle Use, Other (left sided chest wall pain ) Cardiovascular: Normal Peripheral Pulses, Regular Rate, Rhythm, No Edema, No Gallop, No JVD, No Murmur, No Rub GI/Abdominal: Normal Bowel Sounds, Soft, Non-Tender, No Organomegaly, No Distention, No Abnormal Bruit, No Mass (Male) Exam: Deferred Rectal (Males) Exam: Deferred Back Exam: Normal Inspection, Full Range of Motion, NT Extremities: Normal Inspection, Normal Range of Motion, Non-Tender, Normal Capillary Refill, No Pedal Edema Neurological: Alert, Oriented, CN II-XII Intact, Normal Cognition, Normal Gait, Normal Reflexes, No Motor/Sensory Deficits Psychiatric: Normal Affect, Normal Mood Skin Exam: Warm, Dry, Intact, Normal Color, No Rash Lymphatic: No Adenopathy Course - Vital Signs Last Recorded V/S: Last Vital Signs Temp 36.6 C 02/19/19 15:53 Pulse 94 02/19/19 15:53 Resp 24 H 02/19/19 15:53 BP 128/78 02/19/19 15:53 Pulse Ox 94 L 02/19/19 15:53 - Orders/Labs/Meds Orders: Active Orders 24 hr Category Date Time Status EKG 12 Lead [EKG Documentation Completion] [RC] URGENT Care 02/19/19 16:04 Active Labs: Laboratory Tests 02/19/19 02/19/19 Range/Units 15:58 15:58 WBC 12.8 H (5.0-10.0) 10^3/uL RBC 4.20 L (4.6-6.2) 10^6/uL Hgb 13.5 L (14.0-18.0) g/dL Hct 39.6 L (40.0-54.0) % MCV 94.3 D (80-100) fL MCH 32.1 (27.0-34.0) pg MCHC 34.1 (33.0-35.0) g/dL Plt Count 278 (150-450) 10^3/uL Sodium 136 (135-145) mmol/L Potassium 3.4 L (3.6-5.0) mmol/L Chloride 95 L (101-111) mmol/L Carbon Dioxide 28.0 (21.0-31.0) mmol/L Anion Gap 16.4 BUN 20 H (7-18) mg/dL Creatinine 0.8 (0.6-1.3) mg/dL Est Cr Clr Drug Dosing 121.72 mL/min Estimated GFR (MDRD) > 60 BUN/Creatinine Ratio 25.00 Glucose 96 (74-105) mg/dL Calcium 9.3 (8.4-10.2) mg/dl Total Bilirubin 0.7 (0.2-1.0) mg/dL AST 27 (10-42) IU/L ALT 28 (10-60) IU/L Alkaline Phosphatase 83 (42-121) IU/L Troponin I < 0.02 (0.00-0.02) ng/ml Total Protein 7.5 (6.7-8.2) g/dl Albumin 4.2 (3.2-5.5) g/dl Globulin 3.3 Albumin/Globulin Ratio 1.27 Departure - Departure Time of Disposition: 18:30 Disposition: Home, Self-Care 01 Condition: Fair Clinical Impression: Nonspecific chest pain Instructions: Nonspecific Chest Pain, [id number] Referrals: PCP,None [Primary Care Provider] - Forms: ED Department Discharge Care Plan Goals: The patient was advised of the examination, lab, x-ray and EKG results during the visit. The patient was encouraged to rest and relax this evening. The patient should follow-up with his primary care facility for continued evaluation and management. If the patient has any additional symptoms or concerns, the patient should either return to the emergency department or visit her primary care facility. - My Orders Last 24 Hours: My Active Orders 02/19/19 16:04 EKG 12 Lead [EKG Documentation Completion] [RC] URGENT - Assessment/Plan Last 24 Hours: My Active Orders 02/19/19 16:04 EKG 12 Lead [EKG Documentation Completion] [RC] URGENT
== END 2019-02-19 18:40 | disposition home or self-care (01) ==
LOC: DL.ED 15:42
DX: R07.9 Chest pain, unspecified (principal); I11.0 Hypertensive heart disease with heart failure; I50.9 Heart failure, unspecified; E11.40 Type 2 diabetes mellitus with diabetic neuropathy, unspecified; J45.909 Unspecified asthma, uncomplicated; F41.9 Anxiety disorder, unspecified; E66.9 Obesity, unspecified; Z68.45 Body mass index [BMI] 70 or greater, adult; Z86.711 Personal history of pulmonary embolism; Z88.8 Allergy status to other drugs, medicaments and biological substances; Z79.84 Long term (current) use of oral hypoglycemic drugs; Z79.899 Other long term (current) drug therapy
CPT/HCPCS: 36415; 71045; 80053; 84484; 85027; 93005; 99285-25

== ENCOUNTER 2020-09-27 15:32 | Emergency (ER) | payer BC ==
--- NOTE | 2020-09-27 16:02 | CR ---
EXAMINATION: Chest 1V Frontal SEX: Male AGE: 30 years CLINICAL HISTORY: 30-year-old morbidly obese (greater than 450 pound) male with shortness of breath (SOB). Comparison films January and September 2018. INTERPRETATION: External monitoring manager leads. 1. Normal cardiac silhouette (size and configuration improved since comparison CXR 2018). 2. No new pulmonary vascular congestion, cephalization of flow or alveolar edema. 3. Lung bases partially obscured by patient's tissues. No dependent subpulmonic pleural effusion appreciated. 4. No new lung mass or hilar lymphadenopathy. 5. No focal alveolar infiltrate with "air bronchograms" and no peripheral "groundglass" interstitial infiltrates. 6. No pneumothorax or pneumomediastinum. Midline tracheal bronchial airway unremarkable. CONCLUSION: No acute new cardiopulmonary abnormality.
--- NOTE | 2020-09-27 16:03 | EDM.PDOC ---
ED HPI GENERAL MEDICAL PROBLEM - General Chief Complaint: Chest Pain Stated Complaint: E.R. Time Seen by Provider: 09/27/20 16:01 Source of Information: Reports: Patient, RN, RN Notes Reviewed History Limitations: Reports: No Limitations - History of Present Illness INITIAL COMMENTS - FREE TEXT/NARRATIVE: Patient is a 30-year-old male who presents to ER from the clinic with complaint of increased fluid overload. Patient's cardiac provider called the ER states she did see him on telemedicine today, has discussed his present wellbeing with his diabetes nurse, and they have agreed the patient needs lab work done and to be transferred to [facility] in [place]. Patient states history of diabetes, takes oral meds, as well as congestive heart failure. Patient is morbidly obese. States recently he has had a dry cough for the past 2 weeks, some nausea, and feeling of increased fluid retention in the lower extremities and abdomen. Patient states he has experienced some pressure in the chest and increased shortness of breath. Patient states he had Covid the beginning of May, and has not had the vaccinations. Onset: Gradual - Related Data Allergies Allergy/AdvReac Type Severity Reaction Status Date / Time topiramate [From Topamax] Allergy Unknown INTOLERANCE Verified 09/27/20 15:42 heparin Allergy Cannot Verified 09/27/20 15:42 Remember Home Meds: Home Meds Venlafaxine HCl [Venlafaxine ER] 150 mg PO DAILY 04/17/18 [History] Albuterol Sulfate 2.5 mg IH Q4H PRN 04/19/18 [History] Albuterol [Ventolin HFA] 2 puff INH Q4H PRN 04/19/18 [History] busPIRone HCl [Buspirone HCl] 10 mg PO BID 06/05/18 [History] Bumetanide [Bumex] 3 mg PO BID 07/14/18 [History] Magnesium Oxide 400 mg PO DAILY 07/14/18 [History] Oxybutynin Chloride 5 mg PO TID 07/14/18 [History] Rivaroxaban [Xarelto] 15 mg PO BID 07/14/18 [History] Spironolactone [Aldactone] 25 mg PO BID 07/14/18 [History] metFORMIN [Glucophage XR] 1,000 mg PO BIDMEALS 07/14/18 [History] Sacubitril/Valsartan [Entresto 24 mg-26 mg Tablet] 24 mg PO DAILY 10/22/18 [History] Metoprolol Succinate [Toprol Xl] 75 mg PO DAILY 02/19/19 [History] metOLazone [Metolazone] 2.5 mg PO DAILY 02/19/19 [History] Past Medical History HEENT History: Reports: Allergic Rhinitis, Impaired Vision Cardiovascular History: Reports: Heart Failure, High Cholesterol, Hypertension Respiratory History: Reports: Asthma, PE Other Respiratory History: hx of status asthmaticus Genitourinary History: Reports: None Musculoskeletal History: Reports: None Neurological History: Reports: Neuropathy, Diabetic Psychiatric History: Reports: Anxiety Endocrine/Metabolic History: Reports: Diabetes, Type II, Obesity/BMI 30+ 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 Immunologic History: Reports: None Oncologic (Cancer) History: Reports: None Dermatologic History: Reports: Cellulitis - Infectious Disease History Infectious Disease History: Reports: None, Novel Coronavirus - Past Surgical History Head Surgeries/Procedures: Reports: None GI Surgical History: Reports: Bariatric Procedure, Hernia, Abdominal, Other (See Below) Other GI Surgeries/Procedures: lap band Social & Family History - Family History Family Medical History: No Pertinent Family History - Tobacco Use Tobacco Use Status *Q: Never Tobacco User - Caffeine Use Caffeine Use: Reports: None - Recreational Drug Use Recreational Drug Use: No - Living Situation & Occupation Living situation: Reports: with Family Occupation: Employed ED ROS GENERAL - Review of Systems Review Of Systems: Comprehensive ROS is negative, except as noted in HPI. ED EXAM, GENERAL - Physical Exam Exam: See Below Exam Limited By: No Limitations General Appearance: Alert, WD/WN, No Apparent Distress, Obese Eye Exam: Left Eye: Other (amblyopia), Bilateral Eye: EOMI, Normal Inspection Ears: Normal External Exam, Hearing Grossly Normal Nose: Normal Inspection Throat/Mouth: Normal Inspection, Normal Voice, No Airway Compromise Head: Atraumatic, Normocephalic Neck: Normal Inspection, Supple, Non-Tender, Full Range of Motion Respiratory/Chest: No Respiratory Distress, No Accessory Muscle Use, Chest Non- Tender, Decreased Breath Sounds Cardiovascular: Normal Peripheral Pulses, Regular Rate, Rhythm, Other (distant heart tones) Peripheral Pulses: 2+: Radial (L), Radial (R) GI/Abdominal: Normal Bowel Sounds, Soft, Non-Tender (Male) Exam: Deferred Rectal (Males) Exam: Deferred Back Exam: Normal Inspection, Decreased Range of Motion Extremities: Normal Inspection, Normal Range of Motion, Non-Tender, Normal Capillary Refill, No Pedal Edema Neurological: Alert, Oriented, CN II-XII Intact, Normal Cognition, Normal Gait, Normal Reflexes, No Motor/Sensory Deficits Psychiatric: Normal Affect, Normal Mood Skin Exam: Warm, Dry, Intact, Normal Color, No Rash Lymphatic: No Adenopathy #1 Interpretation EKG Date: 09/27/20 Time: 15:37 Rhythm: NSR Rate (Beats/Min): 91 [place]: Normal P-Wave: Present QRS: Wide ST-T: Depressed QT: Normal Comparison: Change From Previous EKG (QRS widening) Course - Vital Signs Last Recorded V/S: Last Vital Signs Temp 97.8 F 09/27/20 15:37 Pulse 92 09/27/20 15:37 Resp 20 09/27/20 15:37 BP 93/51 L 09/27/20 15:37 Pulse Ox 99 09/27/20 15:37 - Orders/Labs/Meds Orders: Active Orders 24 hr Category Date Time Status EKG Documentation Completion [RC] STAT Care 09/27/20 15:36 Active CORONAVIRUS COVID-19 YOSI [MOLEC] Stat Lab 09/27/20 16:15 Received Labs: Laboratory Tests 09/27/20 09/27/20 Range/Units 15:39 15:39 WBC 10.2 H (5.0-10.0) 10^3/uL RBC 3.82 L (4.6-6.2) 10^6/uL Hgb 12.1 L (14.0-18.0) g/dL Hct 37.9 L (40.0-54.0) % MCV 99.2 D (80-100) fL MCH 31.7 (27.0-34.0) pg MCHC 31.9 L (33.0-35.0) g/dL Plt Count 280 (150-450) 10^3/uL Neut % (Auto) 62.0 (42.2-75.2) % Lymph % (Auto) 25.7 (20.5-50.1) % [place] % (Auto) 10.2 H (2-8) % Eos % (Auto) 1.7 (1.0-3.0) % Baso % (Auto) 0.4 (0.0-1.0) % Sodium 139 (136-145) mmol/L Potassium 3.2 L (3.5-5.1) mmol/L Chloride 97 L (98-107) mmol/L Carbon Dioxide 29 (21-32) mmol/L Anion Gap 16.2 H (7-13) mEq/L BUN 28 H (7-18) mg/dL Creatinine 1.85 H (0.70-1.30) mg/dL Est Cr Clr Drug Dosing 51.71 mL/min Estimated GFR (MDRD) 44 BUN/Creatinine Ratio 15.1 (No establ ref range) Glucose 111 H (74-99) mg/dL Calcium 9.3 (8.5-10.1) mg/dL Total Bilirubin 0.4 (0.2-1.0) mg/dL AST 27 (15-37) U/L ALT 41 (16-63) U/L Alkaline Phosphatase 69 (46-116) U/L Troponin I < 0.017 (0.000-0.056) ng/mL B-Natriuretic Peptide 14 (0-100) pg/ml Total Protein 7.1 (6.4-8.2) g/dL Albumin 3.5 (3.4-5.0) g/dL Globulin 3.6 Albumin/Globulin Ratio 1.0 - Radiology Interpretation Free Text/Narrative:: Chest x-ray: No acute new cardiopulmonary abnormality. See radiologist report - Re-Assessments/Exams Free Text/Narrative Re-Assessment/Exam: 09/27/20 17:00 Discussed patient case with Dr. Ulloa who agreed to accept the patient for transfer to [facility]. Departure - Departure Time of Disposition: 17:00 Disposition: DC/Tfer to [facility] 02 Reason for Transfer *Q: Other Condition: Fair Clinical Impression: ADOLFO (acute kidney injury), Hypokalemia CHF (congestive heart failure) Qualifiers: Heart failure type: unspecified Heart failure chronicity: acute on chronic Qualified Code(s): I50.9 - Heart failure, unspecified Forms: ED Department Discharge[facility] Seps[facility] Event Note (ED) - Evaluation Sepsis Screening Result: No Definite Risk - Focused Exam Vital Signs: Vital Signs Temp Pulse Resp BP Pulse Ox 09/27/20 15:37 97.8 F 92 20 93/51 L 99 - My Orders Last 24 Hours: My Active Orders 09/27/20 16:15 CORONAVIRUS COVID-19 YOSI [MOLEC] Stat - Assessment/Plan Last 24 Hours: My Active Orders 09/27/20 16:15 CORONAVIRUS COVID-19 YOSI [MOLEC] Stat
[2020-09-27 16:09] LABS: ANION GAP 16.2 mEq/L (7-13); CHLORIDE,CL 97 mmol/L (98-107); SODIUM,NA 139 mmol/L (136-145)
== END 2020-09-27 17:33 ==
LOC: DL.ED 15:32
DX: I11.0 Hypertensive heart disease with heart failure (principal); I50.9 Heart failure, unspecified; E87.6 Hypokalemia; N17.9 Acute kidney failure, unspecified; J45.909 Unspecified asthma, uncomplicated; E11.40 Type 2 diabetes mellitus with diabetic neuropathy, unspecified; E66.01 Morbid (severe) obesity due to excess calories; Z68.45 Body mass index [BMI] 70 or greater, adult; Z86.711 Personal history of pulmonary embolism; Z79.01 Long term (current) use of anticoagulants; Z79.84 Long term (current) use of oral hypoglycemic drugs; Z88.8 Allergy status to other drugs, medicaments and biological substances; Z79.899 Other long term (current) drug therapy; Z20.822 Contact with and (suspected) exposure to COVID-19
CPT/HCPCS: 36415; 71045; 80053; 83880; 84484; 85025; 93005; 93010; 99284; 99285-25; U0002

== ENCOUNTER 2023-11-06 14:15 | Inpatient (IN) | payer BC ==
[2023-11-06 14:55] LABS: BASOPHILS PERCENT AUTO 0.2 % (0.0-1.0); EOSINOPHILS PERCENT AUTO 0.6 % (1.0-3.0); HEMATOCRIT 40.3 % (40.0-54.0); HEMOGLOBIN 13.8 g/dL (14.0-18.0); LYMPHOCYTES PERCENT AUTO 21.7 % (20.5-50.1); MEAN CORPUSCULAR HEMOGLOBIN 31.1 pg (27.0-34.0); MEAN CORPUSCULAR HGB CONC 34.2 g/dL (33.0-35.0); MEAN CORPUSCULAR VOLUME 90.8 fL (80-100); MONOCYTES PERCENT AUTO 7.7 % (2-8); NEUTROPHILS PERCENT AUTO 69.8 % (42.2-75.2); PLATELET COUNT,PLT 206 10^3/uL (150-450); RED BLOOD CELL COUNT 4.44 10^6/uL (4.6-6.2); WHITE BLOOD CELL COUNT,WBC 11.3 10^3/uL (5.0-10.0)
[2023-11-06] MEDS: Sodium Chloride 0.9% 10 ML Syringe FLUSH PRN (15:03)
[2023-11-06] MEDS: HYDROmorphone 0.5 MG/0.5 ML Syringe IVPUSH ONE ×2 (15:03→18:40)
[2023-11-06 15:19] LABS: LACTIC ACID 1.4 mmol/L (0.4-2.0)
[2023-11-06 15:27] LABS: A/G RATIO 1.4; ALANINE AMINOTRANSFERASE,ALT 25 U/L (16-63); AMYLASE 28 U/L (25-115); ASPARTATE AMNIOTRANSFERASE,AST 14 U/L (15-37); BILIRUBIN TOTAL 0.7 mg/dL (0.2-1.0); BLOOD UREA NITROGEN,BUN 14 mg/dL (7-18); BUN/CREATININE RATIO 13.2 (No establ ref range); CALCIUM 8.7 mg/dL (8.5-10.1); CARBON DIOXIDE,CO2 25 mmol/L (21-32); CHLORIDE,CL 104 mmol/L (98-107); CREATININE 1.06 mg/dL (0.70-1.30); GLUCOSE RANDOM 108 mg/dL (70-99); LIPASE 26 U/L (16-77); PROTEIN TOTAL,TP 6.9 g/dL (6.4-8.2); SODIUM,NA 141 mmol/L (136-145)
[2023-11-06 15:32] LABS: ESTIMATED GFR 96 mL/min (>=60)
[2023-11-06 15:33] LABS: C-REACTIVE PROTEIN < 0.50 ng/dL (<=0.50)
[2023-11-06 15:34] LABS: ALKALINE PHOSPHATASE > 1000 U/L (46-116)
[2023-11-06] MEDS: Iopamidol 612 MG/ML 100 ML Bottle IVPUSH ONE (15:51)
[2023-11-06] MEDS: Benzocaine 20% Topical Spray UD MUCMEM ONE (17:11)
[2023-11-06] MEDS ORDERED: Albuterol 0.083% 2.5 MG/3 ML Neb Soln NEB PRN (20:07)
[2023-11-06] MEDS ORDERED: Albuterol/Ipratropium 3.0-0.5 MG/3 ML Neb Soln NEB PRN (20:07)
[2023-11-06] MEDS ORDERED: Betamethasone Dipropionate/Clotrimazole 0.05-1% Crm 15 GM Tube TOP PRN (20:21)
[2023-11-06] MEDS ORDERED: 50% Dextrose in Water 50 ML Syringe IVPUSH PRN (20:31)
[2023-11-06] MEDS ORDERED: Glucagon,Human Recombinant 1 MG Vial IM PRN (20:31)
[2023-11-06] MEDS: HYDROmorphone 0.5 MG/0.5 ML Syringe IVPUSH PRN (21:02)
[2023-11-06] MEDS: Carvedilol 25 MG Tab PO SCH (21:03)
[2023-11-06] MEDS: Apixaban 5 MG Tab PO SCH (21:03)
[2023-11-06] MEDS: Sodium Chloride 0.9% 1,000 ML IV SCH (21:04)
[2023-11-06] MEDS: Insulin Lispro 100 Units/ML 3 ML Vial SUBCUT SCH (21:26)
[2023-11-06] MEDS: Ondansetron 4 MG/2 ML SDV IVPUSH PRN (22:06)
[2023-11-06] MEDS: ALPRAZolam 0.5 MG Tab PO PRN (22:06)
[2023-11-07] MEDS: HYDROmorphone 0.5 MG/0.5 ML Syringe IVPUSH PRN (00:15)
[2023-11-07 06:35] LABS: BASOPHILS PERCENT AUTO 0.2 % (0.0-1.0); EOSINOPHILS PERCENT AUTO 0.9 % (1.0-3.0); HEMATOCRIT 41.8 % (40.0-54.0); HEMOGLOBIN 13.8 g/dL (14.0-18.0); LYMPHOCYTES PERCENT AUTO 23.6 % (20.5-50.1); MEAN CORPUSCULAR HEMOGLOBIN 30.7 pg (27.0-34.0); MEAN CORPUSCULAR VOLUME 93.1 fL (80-100); MONOCYTES PERCENT AUTO 10.1 % (2-8); NEUTROPHILS PERCENT AUTO 65.2 % (42.2-75.2); PLATELET COUNT,PLT 165 10^3/uL (150-450); RED BLOOD CELL COUNT 4.49 10^6/uL (4.6-6.2); WHITE BLOOD CELL COUNT,WBC 8.2 10^3/uL (5.0-10.0)
[2023-11-07 07:54] LABS: A/G RATIO 1.3; ALANINE AMINOTRANSFERASE,ALT 25 U/L (16-63); ALBUMIN 3.7 g/dL (3.4-5.0); ANION GAP 7.8 mEq/L (7-13); ASPARTATE AMNIOTRANSFERASE,AST 13 U/L (15-37); BILIRUBIN TOTAL 0.7 mg/dL (0.2-1.0); BLOOD UREA NITROGEN,BUN 11 mg/dL (7-18); BUN/CREATININE RATIO 11.7 (No establ ref range); CALCIUM 8.6 mg/dL (8.5-10.1); CARBON DIOXIDE,CO2 26 mmol/L (21-32); CHLORIDE,CL 104 mmol/L (98-107); CREATININE 0.94 mg/dL (0.70-1.30); EST CRCL DRUG DOSING (CG) 99.05 mL/min; GLUCOSE RANDOM 87 mg/dL (70-99); POTASSIUM,K 3.8 mmol/L (3.5-5.1); PROTEIN TOTAL,TP 6.6 g/dL (6.4-8.2); SODIUM,NA 134 mmol/L (136-145)
[2023-11-07 07:56] LABS: ESTIMATED GFR 111 mL/min (>=60)
[2023-11-07 07:57] LABS: ALKALINE PHOSPHATASE > 1000 U/L (46-116)
[2023-11-07] MEDS ORDERED: Metoclopramide 10 MG/2 ML SDV IVPUSH PRN (13:43)
[2023-11-07] MEDS: Barium Sulfate w/v 2% Oral Susp 450 ML Bottle PO ONE (14:00)
== END 2023-11-07 22:41 | DRG 247 ==
LOC: DL.ED 14:15 → DL.MS 19:12
PROVIDERS: ADMIT Internal Medicine; ATTEND Internal Medicine
PROC: 0D9670Z Drainage of Stomach with Drainage Device, Via Natural or Artificial Opening (ICD-10-PCS; principal; 2023-11-06)
DX: K56.609 Unspecified intestinal obstruction, unspecified as to partial versus complete obstruction (principal); E11.9 Type 2 diabetes mellitus without complications; H54.7 Unspecified visual loss; E78.00 Pure hypercholesterolemia, unspecified; I11.0 Hypertensive heart disease with heart failure; J45.902 Unspecified asthma with status asthmaticus; K43.6 Other and unspecified ventral hernia with obstruction, without gangrene; I50.30 Unspecified diastolic (congestive) heart failure; D73.5 Infarction of spleen; E66.01 Morbid (severe) obesity due to excess calories; D75.829 Heparin-induced thrombocytopenia, unspecified; Z98.84 Bariatric surgery status; Z98.890 Other specified postprocedural states; Z79.01 Long term (current) use of anticoagulants; Z86.711 Personal history of pulmonary embolism; Z88.8 Allergy status to other drugs, medicaments and biological substances; Z79.899 Other long term (current) drug therapy; Z79.51 Long term (current) use of inhaled steroids; Z79.84 Long term (current) use of oral hypoglycemic drugs; Z68.43 Body mass index [BMI] 50.0-59.9, adult; Z86.16 Personal history of COVID-19
CPT/HCPCS: 36415; 43752; 71045; 74018; 74176; 74177; 80053; 82150; 82947; 83605; 83615; 83690; 85025; 86140; 96374; 96376; 99223; 99239; 99285; 99285-25; A9270-GY; J1170; J2405; J3490; J7030; Q9967

== ENCOUNTER 2023-11-30 09:15 | Emergency (ER) | payer BC ==
[2023-11-30] MEDS: Piperacillin/Tazobactam 4.5 GM in Sodium Chloride 0.9% 100 ML IV ONE (09:48)
[2023-11-30 09:49] LABS: BASOPHILS PERCENT AUTO 0.2 % (0.0-1.0); EOSINOPHILS PERCENT AUTO 0.7 % (1.0-3.0); HEMATOCRIT 32.4 % (40.0-54.0); HEMOGLOBIN 10.5 g/dL (14.0-18.0); LYMPHOCYTES PERCENT AUTO 14.7 % (20.5-50.1); MEAN CORPUSCULAR HEMOGLOBIN 30.3 pg (27.0-34.0); MEAN CORPUSCULAR HGB CONC 32.4 g/dL (33.0-35.0); MEAN CORPUSCULAR VOLUME 93.6 fL (80-100); MONOCYTES PERCENT AUTO 10.1 % (2-8); NEUTROPHILS PERCENT AUTO 74.3 % (42.2-75.2); PLATELET COUNT,PLT 282 10^3/uL (150-450); RED BLOOD CELL COUNT 3.46 10^6/uL (4.6-6.2); WHITE BLOOD CELL COUNT,WBC 8.6 10^3/uL (5.0-10.0)
[2023-11-30 10:10] LABS: LACTIC ACID 1.4 mmol/L (0.4-2.0)
[2023-11-30 10:17] LABS: A/G RATIO 0.92; ALBUMIN 3.3 g/dL (3.4-5.0); ANION GAP 14.1 mEq/L (7-13); BUN/CREATININE RATIO 10.9 (No establ ref range); C-REACTIVE PROTEIN 5.59 ng/dL (<=0.50); CALCIUM 8.7 mg/dL (8.5-10.1); CREATININE 0.92 mg/dL (0.70-1.30); EST CRCL DRUG DOSING (CG) 101.2 mL/min; POTASSIUM,K 3.1 mmol/L (3.5-5.1); PROTEIN TOTAL,TP 6.9 g/dL (6.4-8.2)
[2023-11-30] MEDS: Sodium Chloride 0.9% 10 ML Syringe FLUSH PRN (10:31)
[2023-11-30] MEDS: Vancomycin 2 GM in Sodium Chloride 0.9% 500 ML IV ONE (10:31)
[2023-11-30] MEDS: Lidocaine 5% Oint 35.44 GM Tube TOP ONE (10:32)
[2023-11-30] MEDS: diphenhydrAMINE 50 MG/ML SDV IVPUSH ONE (10:32)
[2023-11-30] MEDS: Potassium Chloride 10 MEQ Tab.ER PO ONE (10:58)
== END 2023-11-30 12:52 | disposition home or self-care (01) ==
LOC: DL.ED 09:15
DX: L03.317 Cellulitis of buttock (principal); E87.6 Hypokalemia; I11.0 Hypertensive heart disease with heart failure; I50.9 Heart failure, unspecified; E78.00 Pure hypercholesterolemia, unspecified; J45.909 Unspecified asthma, uncomplicated; E11.40 Type 2 diabetes mellitus with diabetic neuropathy, unspecified; Z88.8 Allergy status to other drugs, medicaments and biological substances; Z79.899 Other long term (current) drug therapy
CPT/HCPCS: 36415; 80053; 83605; 85025; 86140; 87040; 96365; 96366; 96367; 96375; 99283; A9270; J1200; J2543; J3370; J3490; J7040